=== PATIENT | male | born 1960 | race Caucasian/White ===

== ENCOUNTER 2020-09-04 15:28 | Observation (INO) ==
[2020-09-04] MEDS ORDERED: Isovue-370 500 ML BOTTLE IVP ONE (16:03)
[2020-09-04] MEDS ORDERED: Ipratropium/Albuterol Neb 3 ML IH ONE (16:04)
[2020-09-04 16:17] LABS: Basophils # 0.1 K/mcL (0.0-0.2); Basophils % 0.5 %; Eosinophils # 0.1 K/mcL (0.0-0.6); Eosinophils % 0.5 %; Hematocrit 48.9 % (37.5-50.1); Hemoglobin 15.9 g/dL (12.9-16.9); Immature Granulocytes % 0.4 % (0-4); Lymphocytes # 1.8 K/mcL (0.6-4.6); Lymphocytes % 16.4 %; Mean Corpuscular HGB Conc 32.5 g/dL (31.6-35.5); Mean Corpuscular Hemoglobin 30.6 pg (28.0-33.3); Mean Platelet Volume 8.8 fL (9.4-12.4); Monocytes # 0.6 K/mcL (0.0-1.3); Monocytes % 5.9 %; Neutrophils # 8.2 K/mcL (1.6-8.9); Platelet Count 443 K/mcL (140-400); Red Cell Distribution Width 12.7 % (11.5-14.5); Segmented Neutrophils % 76.3 %; White Blood Count 10.7 K/mcL (4.3-11.1)
[2020-09-04 16:27] LABS: BUN/Creatinine Ratio 17 (6-26); Blood Urea Nitrogen 19 mg/dL (6-20); Calcium 10.9 mg/dL (8.6-10.3); Carbon Dioxide 26 mEq/L (23-29); Chloride 101 mEq/L (98-107); Glucose 88 mg/dL (70-105); Osmolality,Calculated 286 (280-300); Potassium 4.3 mEq/L (3.5-5.1); Sodium 137 mEq/L (136-145); eGFR For African Americans > 60 (> 60); eGFR For Non-African Americans > 60 (> 60)
[2020-09-04 16:28] LABS: Troponin I < 0.03 ng/mL (< 0.04)
[2020-09-04] MEDS ORDERED: methylPREDNISolone 125 MG/2 ML VIAL IVP ONE (17:24)
[2020-09-04] MEDS ORDERED: Acetaminophen 325 MG TABLET PO PRN (17:37)
[2020-09-04] MEDS ORDERED: 0.9 % Sodium Chloride 1,000 ML IVC ONE (17:37)
[2020-09-04] MEDS ORDERED: Naloxone 0.4 MG/ML INJ IVP PRN (17:37)
[2020-09-04] MEDS ORDERED: Albuterol 2.5 MG/3 ML NEBULIZER IH PRN (17:38)
[2020-09-04 19:33] LABS: Thyroid Stimulating Hormone 1.672 mcIU/mL (0.340-5.600)
[2020-09-04] MEDS: Levalbuterol Neb 1.25 MG/3 ML IH SCH ×3 (19:53→20:39)
[2020-09-04] MEDS: Ipratropium/Albuterol Neb 3 ML IH SCH ×3 (19:56→20:39)
[2020-09-04] MEDS: Budesonide/Formoterol 160/4.5 1 PUFF INH IH SCH (19:57)
[2020-09-04] MEDS: Azithromycin 250 MG TABLET PO SCH (21:36)
[2020-09-04 22:53] LABS: Adenovirus Not Detected (Not Detect); Bordetella Pertussis Not Detected (Not Detect); Chlamydophila pneumoniae Not Detected (Not Detect); Coronavirus 229E Not Detected (Not Detect); Coronavirus HKU1 Not Detected (Not Detect); Coronavirus NL63 Not Detected (Not Detect); Coronavirus OC43 Not Detected (Not Detect); Human Metapneumovirus Not Detected (Not Detect); Human Rhinovirus/Enterovirus Not Detected (Not Detect); Influenza A Subtype 2009 H1 Not Detected (Not Detect); Influenza B Not Detected (Not Detect); Mycoplasma pneumoniae Not Detected (Not Detect); Parainfluenza Virus 1 Not Detected (Not Detect); Parainfluenza Virus 2 Not Detected (Not Detect); Parainfluenza Virus 3 Not Detected (Not Detect); Parainfluenza Virus 4 Not Detected (Not Detect); Respiratory Syncytial Virus Not Detected (Not Detect); SARS-CoV-2 Not Detected (Not Detect)
[2020-09-04] MEDS ORDERED: Ipratropium/Albuterol Neb 3 ML IH SCH (23:00)
[2020-09-05] MEDS: Levalbuterol Neb 1.25 MG/3 ML IH SCH ×2 (03:46→10:08)
[2020-09-05 03:54] LABS: Hematocrit 42.3 % (37.5-50.1); Immature Granulocytes % 0.4 % (0-4); Lymphocytes # 0.6 K/mcL (0.6-4.6); Lymphocytes % 7.4 %; Mean Corpuscular HGB Conc 32.2 g/dL (31.6-35.5); Mean Corpuscular Hemoglobin 29.3 pg (28.0-33.3); Mean Corpuscular Volume 91.2 fL (83.0-100.0); Mean Platelet Volume 8.8 fL (9.4-12.4); Monocytes # 0.1 K/mcL (0.0-1.3); Monocytes % 0.6 %; Neutrophils # 7.1 K/mcL (1.6-8.9); Platelet Count 387 K/mcL (140-400); Red Blood Count 4.64 M/mcL (4.19-5.50); Red Cell Distribution Width 12.5 % (11.5-14.5); Segmented Neutrophils % 91.6 %; White Blood Count 7.8 K/mcL (4.3-11.1)
[2020-09-05 03:59] LABS: Hemoglobin 13.6 g/dL (12.9-16.9)
[2020-09-05 04:11] LABS: BUN/Creatinine Ratio 20 (6-26); Blood Urea Nitrogen 20 mg/dL (6-20); Carbon Dioxide 22 mEq/L (23-29); Chloride 105 mEq/L (98-107); Glucose 141 mg/dL (70-105); Osmolality,Calculated 289 (280-300); Potassium 3.8 mEq/L (3.5-5.1); Sodium 137 mEq/L (136-145); eGFR For African Americans > 60 (> 60); eGFR For Non-African Americans > 60 (> 60)
[2020-09-05 04:35] LABS: Platelet Estimate Normal (Normal)
[2020-09-05 07:33] VITALS: BP 119/87; PULSE 116; TEMP 98.4
[2020-09-05] MEDS: Azithromycin 250 MG TABLET PO SCH (08:16)
[2020-09-05] MEDS ORDERED: Metoprolol XL (24 HR) Succ 50 MG TAB.ER.24H PO SCH (09:00)
[2020-09-05] MEDS ORDERED: predniSONE 20 MG TABLET PO SCH (09:00)
[2020-09-05] MEDS ORDERED: Nicotine 21 MG PATCH.TD24 TD SCH (09:00)
[2020-09-05] MEDS ORDERED: Aspirin Enteric Coated 81 MG Tablet PO SCH (09:00)
[2020-09-05] MEDS: Budesonide/Formoterol 160/4.5 1 PUFF INH IH SCH (10:07)
[2020-09-05 10:11] VITALS: O2SAT 97
== END 2020-09-05 12:18 | disposition home or self-care (01) ==
LOC: EMEROOARM 15:28 → 2NENU 15:28 → SUATTDRO 17:44 → 2NENU 18:34
PROVIDERS: ADMIT Internal Medicine; ATTEND Internal Medicine